=== PATIENT | female | born 1975 | race American Indian/Alaskan Native ===

== ENCOUNTER 2017-01-17 14:03 | Emergency (ER) | payer SELFPAY ==
[2017-01-17 14:10] VITALS: BP 178/96
--- NOTE | 2017-01-17 15:40 | Emergency Department Report ---
ED Rash HPI - HPI Chief Complaint: Skin Rash Stated Complaint: RASH Time Seen by Provider: 01/17/17 15:40 Duration: 3 Days Location: Other (buttock r side of crease) Rash Symptoms: No Itching, No Facial Swelling, No Tongue/Oral Swelling, No Breathing Difficulties, No Choking Sensation, No Wheezing/Dyspnea, No Peeling, No Blistering, No Fever, No Lightheaded, No Malaise, No Myalgias Severity: mild ED Review of Systems ROS: Stated complaint: RASH Other details as noted in HPI Comment: All other systems reviewed and negative Skin: other (lesion r buttocks) ED Past Medical Hx - Past Medical History Previous Medical History?: No - Surgical History Past Surgical History?: No - Social History Smoking Status: Never Smoker Substance Use Type: None - Medications Home Medications: Home Medications Medication Instructions Recorded Confirmed Last Taken Type Clotrimazole 1%(Nf) [Lotrimin 1 applicatio TP BID #1 bottle 01/17/17 Unknown Rx Lotion] Rash Exam - Exam General: Vital signs noted. No distress. Alert and acting appropriately. HEENT: No Periorbital Edema, No Conjuctival Injection, No Chemosis, No Perioral Edema, No Tongue Edema, No Uvular Edema, No Compromised Airway, No Drooling Lungs: Yes Good Air Exchange, No Wheezes, No Ronchi, No Stridor, No Cough, No Labored Respirations, No Retractions, No Use of Accessory Muscles, No Other Abnormal Lung Sounds Heart: Yes Regular, No Murmur Skin: Yes Erythema, Yes Other (DOG HAS RING WORM), No Urticarial Rash, No Maculopapular Rash, No Morbilliform rash, No Bulla(e), No Excoriations, No Weeping, No Tenderness, No Edema, No Encrustations Other: Positive: Abdomen Normal, Neurologic Normal, Musculoskeletal Normal ED Course Vital Signs 01/17/17 14:07 Temperature 99 F Pulse Rate 91 H Respiratory 20 Rate Blood Pressure 178/96 O2 Sat by Pulse 100 Oximetry - Reevaluation(s) Reevaluation #1: 01/17/17 15:58 [id number] Reevaluation #2: 01/17/17 16:06 PT TO ER W RASH OF R BUTTOCKS IT IS JUST TO THE R OF CREASE SHE FOUND IN [place]; WHEN SHE RUBBED IT IT HURT THEN IT SPREAD SHE STATES IT IS NOT PAINFUL. DOES NOT ITCH HAS HAS CHICKEN POX IT IS UNILAT RED AREA OF SMALLER LESIONS- NO YELLOW VARGHESE IN SHINGLES BUT APPEARS DERMATONAL PT DOES NOT JUST WANT ANY MEDS SHE GOES ON TO ADD THAT HER DOG HAS BAD RING WORM IT IS SIMILAR IN CONFIG TO SHAPE OF RING WORM DISCUSSED DERM W PT. WE HAVE DONE HSV CX TO TRY TO ISOLATE ANY HSV IF POS PT NEEDS CALLED AND MED CHANGED FOR NOW WILL TX WITH "OLE" FOR ? RING WORM SHE WILL FU WITH DERM FOR DEF DX AND FOLLOW UP SHE VERBALIZES UNDERSTANDING VSS NO FEVER NON TOXIC ED Medical Decision Making - Medical Decision Making see note - Differential Diagnosis ring worm v hsv Critical care attestation.: If time is entered above; I have spent that time in minutes in the direct care of this critically ill patient, excluding procedure time. ED Disposition Clinical Impression: Rash Disposition: DC-01 TO HOME OR SELFCARE Is pt being admited?: No Does the pt Need Aspirin: No Condition: Stable Instructions: Antifungals (On the skin) Additional Instructions: we will call you if the swab reveals a need for different medication KEEP IN MIND- RING WORM CAN TAKE A WHILE TO GET RID OF FOLLOW UP DERMATOLOGY FOR THAT DEFINITIVE DIAGNOSIS WE DISCUSSED Prescriptions: Clotrimazole 1%(Nf) [Lotrimin Lotion] 1 applicatio TP BID #1 bottle Referrals: JUD HARRIS MD [Referring] - 3-5 Days SAIRA WILLIAMSON MD [Staff Physician] - 3-5 Days Time of Disposition: 15:51
== END 2017-01-17 16:44 | disposition home or self-care (01) ==
LOC: ED 14:03
DX: R21 Rash and other nonspecific skin eruption (principal)
CPT/HCPCS: 36415; 87255; 99282

== ENCOUNTER 2018-04-24 09:08 | Emergency (ER) | payer SELFPAY ==
--- NOTE | 2018-04-24 09:50 | Emergency Department Report ---
ED Chest Pain HPI - General Chief Complaint: Chest Pain Stated Complaint: PAIN IN CHEST/SHOULDER BLADES/RIB CAGE Time Seen by Provider: 04/24/18 09:36 Source: patient Mode of arrival: Ambulatory Limitations: No Limitations - History of Present Illness Initial Comments: 43-year-old female presents to the emergency department with complaint of some left lateral back pain that radiated around and go across her chest. Overall, the patient says that the chest pains going on for "a while" but the back pain that radiates around towards the chest has been going on for the past 2 days. She denies any shortness of breath but does say that deep breaths make the pain worse. She denies any fever, nausea, vomiting, diarrhea, abdominal pain but does admit to increased urinary frequency. She has not taken anything for her symptoms prior to presentation. She denies any tobacco use but does admit to occasional marijuana smoking. She denies any past medical history but also does not follow-up with any primary care physician. No recent travel or sick contacts at home. Severity scale (0 -10): 8 - Related Data Previous Rx's Medication Instructions Recorded Last Taken Type Clotrimazole 1%(Nf) [Lotrimin 1 applicatio TP BID #1 bottle 01/17/17 Unknown Rx Lotion] HYDROcodone/APAP 5-325 [[place] 1 each PO Q6HR PRN #10 tablet 04/24/18 Unknown Rx 5/325] Allergies Allergy/AdvReac Type Severity Reaction Status Date / Time No Known Allergies Allergy Unverified 04/24/18 09:11 Heart Score - HEART Score History: Slightly suspicious EKG: Normal Age: < 45 Risk factors: 1-2 risk factors Troponin: < normal limit HEART Score: 1 - Critical Actions Critical Actions: 0-3 pts:0.9-1.7%risk of adverse cardiac event.Candidate for discharge ED Review of Systems ROS: Stated complaint: PAIN IN CHEST/SHOULDER BLADES/RIB CAGE Other details as noted in HPI Comment: All other systems reviewed and negative Constitutional: denies: chills, fever Eyes: denies: eye pain, vision change ENT: denies: ear pain, throat pain Respiratory: denies: cough, wheezing Cardiovascular: chest pain. denies: palpitations Gastrointestinal: denies: abdominal pain, vomiting Genitourinary: frequency. denies: dysuria Musculoskeletal: back pain. denies: joint swelling Skin: denies: rash, lesions Neurological: denies: headache, weakness ED Past Medical Hx - Past Medical History Previous Medical History?: No - Surgical History Past Surgical History?: No - Social History Smoking Status: Current Every Day Smoker Substance Use Type: Alcohol, Marijuana - Medications Home Medications: Home Medications Medication Instructions Recorded Confirmed Last Taken Type Clotrimazole 1%(Nf) [Lotrimin 1 applicatio TP BID #1 bottle 01/17/17 Unknown Rx Lotion] HYDROcodone/APAP 5-325 [[place] 1 each PO Q6HR PRN #10 tablet 04/24/18 Unknown Rx 5/325] ED Physical Exam - General Limitations: No Limitations - Other Other exam information: GENERAL: The patient is well-developed well-nourished. HEENT: Normocephalic. Atraumatic. Patient has moist mucous membranes. EYES: Extraocular motions are intact. Pupils are equal and reactive to light bilaterally. NECK: Supple. Trachea is midline. CHEST/LUNGS: Clear to auscultation. There is no respiratory distress noted. HEART/CARDIOVASCULAR: Regular. There is no tachycardia. There is no obvious murmur. ABDOMEN: Abdomen is soft, nontender. Patient has normal bowel sounds. Obese habitus. SKIN: Skin is warm and dry. NEURO: The patient is awake, alert, and oriented. The patient is cooperative. The patient has no focal neurologic deficits. The patient has normal speech. MUSCULOSKELETAL: There is no tenderness or deformity. There is no limitation range of motion. There is no evidence of acute injury. BACK: No midline thoracic or lumbar tenderness to palpation, step-off or deformity. Unable to reproduce left lateral thoracic back pain to palpation. ED Course Vital Signs 04/24/18 04/24/18 09:13 12:27 Temperature 98.8 F 98.7 F Pulse Rate 101 H 63 Respiratory 17 16 Rate Blood Pressure 165/87 Blood Pressure 136/87 [Right] O2 Sat by Pulse 98 100 Oximetry CHETAN score - Chetan Score Age > 65: (0) No Aspirin use within the Past 7 Days: (0) No 3 or more CAD Risk Factors: (0) No 2 or more Angina events in past 24 hrs: (1) Yes (if pain is considered angina) Known CAD with more than 50% Stenosis: (0) No Elevated Cardiac Markers: (0) No ST Deviation Greater than 0.5mm: (0) No CHETAN Score: 1 ED Medical Decision Making - Lab Data Result diagrams: 04/24/18 09:51 04/24/18 09:51 - EKG Data -: EKG Interpreted by Me EKG shows normal: sinus rhythm, axis, intervals, QRS complexes, ST-T waves Rate: normal - EKG Data When compared to previous EKG there are: previous EKG unavailable Interpretation: normal EKG - Radiology Data Radiology results: report reviewed, image reviewed interpreted by me: Chest x-ray does not show any pneumothorax, pleural effusion, pneumonia or obvious focal consolidation. CTA CHEST INDICATION: Chest pain, shortness of breath. Elevated dimer. COMPARISON: None similar. FINDINGS: Chest CTA performed following intravenous administration of 100 cc of Omnipaque 350. Rotational MIP's also obtained. Normal heart size. No effusions. No aortic aneurysm, dissection or suspicious pulmonary arterial filling defects. No size significant adenopathy. Normal airway. Unremarkable thyroid. Clear lungs. A 0.5 cm right lower lobe pneumatocele incidentally seen, axial series 2, image 78. Nonspecific distal esophageal wall prominence/thickening, not excluded for gastroesophageal reflux and/or hiatal hernia, amongst others. Images through included upper abdomen reveal no acute abnormality. Slight diffuse bilateral adrenal prominence/possible hyperplasia may be noted. Mild multilevel mid to lower thoracic spine degenerative spurring. Mild asymmetric right shoulder degenerative changes also seen. CONCLUSION: No CT evidence of pulmonary embolism with few other incidental findings, as above. Thank you for the opportunity to participate in this patient's care. Transcribed By: RS Dictated By: OBDULIA RAMIREZ MD Electronically Authenticated By: OBDULIA RAMIREZ MD Signed Date/Time: 04/24/18 2501 - Medical Decision Making This patient presents to the emergency department with complaint of some left lateral upper back pain that radiates around towards the chest and some intermittent and/or chronic chest discomfort. EKG does not show any signs of ST elevation AK, ischemia or dysrhythmia. Patient's labs have been mostly unremarkable including a negative troponin but she did have a slightly elevated and equivocal d-dimer at 260. For this reason a CT angiography of the chest was done that does not show any signs of any pulmonary embolism, dissection, aneurysm or any other acute process but did have the incidental finding of a pneumatocele. I discussed this incidental finding with the patient. Her blood pressure came down with just some Toradol for pain control. The patient is feeling improved and asking for discharge home. She's been given a referral for primary care, cardiology. She will return to the ER with any worsening of her symptoms or any acute distress. - Differential Diagnosis costochondritis, muscle spasm, AK, dysrhythmia Critical Care Time: No Critical care attestation.: If time is entered above; I have spent that time in minutes in the direct care of this critically ill patient, excluding procedure time. ED Disposition Clinical Impression: Atypical chest pain Back pain Qualifiers: Back pain location: thoracic back pain Chronicity: unspecified Back pain laterality: left Qualified Code(s): M54.6 - Pain in thoracic spine Hypertension Qualifiers: Hypertension type: essential hypertension Qualified Code(s): I10 - Essential (primary) hypertension Disposition: DC- TO HOME OR SELFCARE Is pt being admited?: No Condition: Stable Instructions: Chest Pain (ED), Hypertension (ED), Back Pain (ED) Additional Instructions: Please follow up with a primary care physician in the next few days. I'm also g iving him a referral for a local trademark paralegal/heart doctor, Dr. Mariscal. Return to the emergency Department with any worsening of your symptoms or any acute distress. You have been prescribed a medication that can be sedating. Therefore, this medication cannot be taken prior to driving, working, being responsible for children, and cannot be mixed with alcohol of any quantity. Please try and stay away from foods that are high in salt and caffeinated products to help with your blood pressure. Keep a blood pressure log. Prescriptions: HYDROcodone/APAP 5-325 [[place] 5/325] 1 each PO Q6HR PRN #10 tablet PRN Reason: Pain Referrals: JOHN MARISCAL MD [Staff Physician] - 3-5 Days AMRIT MARTINEZ MD [Staff Physician] - 3-5 Days Forms: Work/School Release Form(ED)
[2018-04-24 10:13] LABS: Hematocrit 41.3 % (30.3-42.9); Hemoglobin 13.7 gm/dl (10.1-14.3); Mean Corpuscular HGB Conc 33 % (30-34); Mean Corpuscular Volume 98 fl (79-97); Platelet Count 265 K/mm3 (140-440); Red Blood Count 4.23 M/mm3 (3.65-5.03); Red Cell Distribution Width 13.3 % (13.2-15.2)
[2018-04-24 10:23] LABS: Alanine Aminotransferase 7 units/L (7-56); Albumin 3.7 g/dL (3.9-5); BUN/Creatinine Ratio 11; Blood Urea Nitrogen 9 mg/dL (7-17); Calcium 9.2 mg/dL (8.4-10.2); Hemolysis Index 3
[2018-04-24] MEDS ORDERED: TORADOL IV ONE (10:33)
[2018-04-24] MEDS ORDERED: NACL 0.9% 1000 ML 1,000 ML IV ONE (10:33)
--- NOTE | 2018-04-24 10:47 | XRay Report ---
CHEST 2 VIEWS INDICATION: Chest pain. COMPARISON: None similar at this institution. FINDINGS: PA and lateral chest radiographs demonstrate normal cardiomediastinal silhouette. Clear lungs. Mild multilevel thoracic spine degenerative spurring. CONCLUSION: No acute disease in the chest. Thank you for the opportunity to participate in this patient's care.
--- NOTE | 2018-04-24 11:59 | Cat Scan Report ---
CTA CHEST INDICATION: Chest pain, shortness of breath. Elevated dimer. COMPARISON: None similar. FINDINGS: Chest CTA performed following intravenous administration of 100 cc of Omnipaque 350. Rotational MIP's also obtained. Normal heart size. No effusions. No aortic aneurysm, dissection or suspicious pulmonary arterial filling defects. No size significant adenopathy. Normal airway. Unremarkable thyroid. Clear lungs. A 0.5 cm right lower lobe pneumatocele incidentally seen, axial series 2, image 78. Nonspecific distal esophageal wall prominence/thickening, not excluded for gastroesophageal reflux and/or hiatal hernia, amongst others. Images through included upper abdomen reveal no acute abnormality. Slight diffuse bilateral adrenal prominence/possible hyperplasia may be noted. Mild multilevel mid to lower thoracic spine degenerative spurring. Mild asymmetric right shoulder degenerative changes also seen. CONCLUSION: No CT evidence of pulmonary embolism with few other incidental findings, as above. Thank you for the opportunity to participate in this patient's care.
[2018-04-24 12:04] LABS: Total Cells Counted 100
[2018-04-24 12:05] LABS: Basophils % (Manual) 0 % (0.0-1.8)
[2018-04-24 12:07] LABS: Anisocytosis Few; Platelet Estimate Consistent w Auto; Poikilocytosis Few
[2018-04-24 12:29] VITALS: BP 136/87
[2018-04-24 12:30] LABS: Bilirubin,Urine NEG (Negative); Blood,Urine NEG (Negative); Color,Urine Colorless (Yellow); Mucus,Urine FEW /HPF; Protein,Urine <15 mg/dL mg/dL (Negative); Urobilinogen,Urine < 2.0 mg/dL (<2.0); WBC,Urine < 1.0 /HPF (0.0-6.0)
== END 2018-04-24 12:27 | disposition home or self-care (01) ==
LOC: ED 09:08
DX: M54.9 Dorsalgia, unspecified (principal); R07.89 Other chest pain; I10 Essential (primary) hypertension; F17.200 Nicotine dependence, unspecified, uncomplicated; F12.10 Cannabis abuse, uncomplicated
CPT/HCPCS: 36415; 71046; 71275; 80053; 81001; 84484; 84703; 85007; 85025; 85379; 93005; 93010; 96374; 99284; J1885; J7030; Q9967